=== PATIENT | female | born 1935 | race Caucasian/White ===

== ENCOUNTER → 2025-01-09 | Outpatient (CLI) | payer OTHER ==
[~2025-01-09] MED LIST: CALTRATE PLUS T1 TAB PO; CENTRUM CARDIO1 EACH PO; NABUMETONE500 MG PO; PERCOCET 5/3251 TAB PO; PROTONIX20 MG PO; ZANTAC15 MG/ML PO; ZOCOR20 MG PO
== END | disposition home or self-care (01) ==
LOC: SONOGRAMA 14:20
PROVIDERS: ATTEND Pathology Anatomic Pathology
DX: D34 Benign neoplasm of thyroid gland (principal); E07.89 Other specified disorders of thyroid; E04.1 Nontoxic single thyroid nodule